=== PATIENT | female | born 1965 ===

== ENCOUNTER 2016-08-17 07:54 | Day surgery (SDC) | payer MEDICAID ==
[2016-08-17] MEDS ORDERED: Lactated Ringer's 500 ML IV ONE (08:30)
[2016-08-17] MEDS ORDERED: Propofol 10 mg/ml Inj (20 ML) ONE (10:04)
[2016-08-17 10:34] VITALS: TEMP 97
[2016-08-17 11:00] VITALS: BP 113/66; PULSE 66; RESP 19; O2SAT 100
== END 2016-08-17 10:57 | disposition home or self-care (01) ==
LOC: H.ENDO 07:54
PROVIDERS: ATTEND Internal Medicine Gastroenterology
DX: Z12.11 Encounter for screening for malignant neoplasm of colon (principal); K64.8 Other hemorrhoids; G47.30 Sleep apnea, unspecified